=== PATIENT | male | born 1960 | race Caucasian/White ===

== ENCOUNTER 2019-02-10 19:42 | Inpatient (IN) | payer OTHER, BC ==
[~2019-02-10] VITALS: Ht 182.9 cm; Wt 81.6 kg
[2019-02-10] MEDS ORDERED: LIPITOR20 MG (20:05)
[2019-02-10] MEDS ORDERED: BP MEDS (20:05)
[2019-02-10] MEDS ORDERED: NOVOLOG100 UNIT/1 SC (20:05)
[2019-02-10] MEDS ORDERED: LANTUS INSULIN10 ML SC (20:05)
[2019-02-10 20:28] LABS: BASOPHILS 0.2 % (0-2); EOSINOPHILS 0.5 % (0-7); HEMATOCRIT 41.9 % (42.0-54.0); HEMOGLOBIN 14.7 g/dL (13.5-17.5); IMMATURE GRANULOCYTES 0.2 % (0-5); LYMPHOCYTES 22.5 % (15-50); MCH 31.4 pg (26.0-34.0); MCHC 35.1 g/dL (31.0-37.0); MCV 89.5 fL (80.0-100.0); MONOCYTES 8.1 % (2-11); NEUTROPHILS 68.5 % (40-80); PLATELET COUNT 217 10x3/uL (130-400); RBC 4.68 10x6/uL (4.20-6.10); RDW 14.3 % (11.5-14.5)
[2019-02-10 20:41] LABS: ALBUMIN 3.9 g/dL (3.4-5.0); ALKALINE PHOSPHATASE 89 U/L (46-116); ALT (SGPT) 33 U/L (10-68); BILIRUBIN - TOTAL 0.69 mg/dL (0.2-1.3); CALC OSMOLALITY 283 mosm/kg (275-300); CALCIUM 9.4 mg/dL (8.5-10.1); CARBON DIOXIDE 29.1 mmol/L (21.0-32.0); CHLORIDE - SERUM 99 mmol/L (98-107); CREATININE - SERUM 1.8 mg/dL (0.6-1.3); GLUCOSE 130 mg/dL (74-106); POTASSIUM - SERUM 3.2 mmol/L (3.5-5.1); PROTEIN - SERUM 7.9 g/dL (6.4-8.2); SODIUM 139 mmol/L (136-145); UREA NITROGEN 24 mg/dL (7-18); eGFR NON AFRICAN AMERICAN 42 mL/min (90-120)
[2019-02-10 20:44] LABS: AMYLASE - SERUM 41 U/L (25-115); LIPASE 68 U/L (73-393); TROPONIN-I < 0.017 ng/mL (0.000-0.060)
--- NOTE | 2019-02-10 21:21 | NUR ---
URINE SPECIMEN TAKEN TO LAB
[2019-02-10 21:44] LABS: APPEARANCE CLEAR (CLEAR); BILIRUBIN NEGATIVE (NEGATIVE); COLOR YELLOW (YELLOW); GLUCOSE 250 mg/dL (NEGATIVE); KETONE NEGATIVE (NEGATIVE); NITRITE NEGATIVE (NEGATIVE); PROTEIN NEGATIVE (NEGATIVE); UROBILINOGEN NORMAL (NORMAL)
[2019-02-10 22:00] VITALS: BP 118/64
[2019-02-10 22:03] LABS: UDS - AMPHET NEGATIVE QUAL (NEGATIVE); UDS - BARB NEGATIVE QUAL (NEGATIVE); UDS - BENZO NEGATIVE QUAL (NEGATIVE); UDS - COCAINE NEGATIVE QUAL (NEGATIVE); UDS - OPIATE NEGATIVE QUAL (NEGATIVE); UDS - PCP NEGATIVE QUAL (NEGATIVE); UDS - THC POSITIVE QUAL (NEGATIVE)
--- NOTE | 2019-02-10 22:30 | NUR ---
PT ACTIVELY VOMITING IN ROOM. EDP NOTIFIED.
--- NOTE | 2019-02-10 23:15 | NUR ---
PT AMBULATED TO RESTROOM WITH A STEADY GAIT.
[2019-02-11] VITALS (15 sets, daily range): BP systolic 104–130; BP diastolic 44–77; Ht 182.9 cm; Wt 81.6 kg
--- NOTE | 2019-02-11 00:30 | NUR ---
PATIENT ADMITTED TO RM 1210. MESSAGE LEFT WITH ATTENDING MD. PATIENT EDUCATED ON AND DEMONSTRTES APPROPRIATE USE OF A CALL LIGHT. THE PATIENT HAS NO QUESTIONS OR CONCERNS AT THIS TIME.
--- NOTE | 2019-02-11 03:04 | NUR ---
THE PATIENT IS AWAKE AND TALKING TO STAFF. HE HAS NO QUESTINS OR CONCERNS AT THIS TIME.
--- NOTE | 2019-02-11 07:55 | NUR ---
ALERT AND ORIENTED X4. SITTING UP IN BED. NOTIFY LIBRADO RODRIGUEZ OF GLUCOSE LAB DRAW 563. HIGH SLIDING SCALE, KETONES, AND UA WITH MICRO ORDERED VIA TELEPHONE. CONTINUE PLAN OF CARE AND SAFETY PRECAUTIONS.
[2019-02-11 07:56] LABS: CALCIUM 8.9 mg/dL (8.5-10.1)
[2019-02-11 07:59] LABS: ANION GAP 38.8 mmol/L (8-16); CARBON DIOXIDE 11.4 mmol/L (21.0-32.0); POTASSIUM - SERUM 4.2 mmol/L (3.5-5.1)
[2019-02-11 08:03] LABS: BASOPHILS 0.1 % (0-2); EOSINOPHILS 0.1 % (0-7); HEMATOCRIT 36.2 % (42.0-54.0); HEMOGLOBIN 11.9 g/dL (13.5-17.5); IMMATURE GRANULOCYTES 0.5 % (0-5); LYMPHOCYTES 3.7 % (15-50); MCH 30.8 pg (26.0-34.0); MCHC 32.9 g/dL (31.0-37.0); MEAN PLATELET VOLUME 11.4 fL (7.4-10.4); MONOCYTES 7.3 % (2-11); NEUTROPHILS 88.3 % (40-80); PLATELET COUNT 208 10x3/uL (130-400); RBC 3.86 10x6/uL (4.20-6.10); RDW 14.8 % (11.5-14.5)
[2019-02-11 08:04] LABS: MCV 93.8 fL (80.0-100.0); WBC 16.4 10x3/uL (4.8-10.8)
--- NOTE | 2019-02-11 09:15 | NUR ---
ARRIVED TO UNIT AT THIS TIME. PT ALERT AND ORIENTED. STATES IS NAUSEAOUS AND LIGHT HEADED. RR 30, HEART RATE 131. DR VALENTINE CALLED AND UPDATED, ORDERED PRN ZOFRAN, ALSO STATED TO FOLLOW DKA PROTOCOL. WILL CONTINUE PLAN OF CARE.
--- NOTE | 2019-02-11 09:15 | NUR ---
REPORT GIVEN TO LEONIDES DELANEY IN ICU. TRANSPORT TO ROOM 2310 VIA WHEELCHAIR. VOMITS UPON ARRIVAL. ASSIST FROM WHEELCHAIR TO BED. ELAINA RESUMES PLAN OF CARE.
--- NOTE | 2019-02-11 10:14 | NUR ---
DR VALENTINE CALLED REGARDING ABG RESULTS. ORDER RECIEVED FOR 500ML NS BOLUS NOW THEN RUN NS AT 150ML/HR AND IF AFTER BOLUS HEART RATE IS NOT UNDER 115 THEN REPEAT 500ML NS BOLUS.
--- NOTE | 2019-02-11 12:29 | NUR ---
SECOND IV PLACED TO RT WRIST, 22G, FLUSHES WELL.
[2019-02-11 13:51] LABS: APPEARANCE CLEAR (CLEAR); COLOR STRAW (YELLOW)
[2019-02-11 13:52] LABS: BILIRUBIN NEGATIVE (NEGATIVE); GLUCOSE 1000 mg/dL (NEGATIVE); KETONE LARGE mg/dL (NEGATIVE); NITRITE NEGATIVE (NEGATIVE); PROTEIN NEGATIVE (NEGATIVE); UROBILINOGEN NORMAL (NORMAL)
--- NOTE | 2019-02-11 14:25 | NUR ---
BLOOD SUGAR IS 173, PER DR MEME VANG NS AND START D5 WITH 2 AMP BICARB AT 100ML/HR.
--- NOTE | 2019-02-11 14:30 | MORECARE ---
CASE MANAGEMENT DISCHARGE SUMMARY PATIENT: SOFIA BURNETT UNIT: [id number] ADM DATE: 02/10/19 AGE: 58 : 64 SEX: M ROOM/BED: D.2310 AUTHOR: TODD,DOC PHYSICIAN: REFERRING PHYSICIAN: AVIVA VALENTINE MD DATE OF SERVICE: 02/11/19 Discharge Plan Patient Name: SOFIA BURNETT Facility: [facility]:[place] : 1960 Planned Disposition: Anticipated Discharge Date: 02/13/19 Discharge Date: Expected LOS: 3 Initial Reviewer: [email or web address] Initial Review Date: 02/11/2019 Generated: 02/11/19 3:30 pm Comments DCP- Discharge Planning Updated by [email or web address]: Linda Guadarrama on 02/11/19 1:[address] Patient Name: SOFIA BURNETT Encounter No: [id number] : 1960 Primary Insurance: [facility] Recreation Therapy Aide: : NUPUR Note: CM met with patient to complete initial dc planning assessment. CM educated patient on the CM role and verbal consent given by patient to complete assessment. Patient lives at home alone but his girlfriend stays with him some. He reports he is independent in his care at home. At discharge patient plans to return home and feels this is a safe discharge. [facility] and stated he has other insurance. Decline to transform form signed and faxed the the [facility] by cm. CM discussed availability of home health, rehab services, and medical equipment. Patient denied known discharge needs at this time. CM will continue to follow and will assist as needed with dc plans/needs. Linda Guadarrama RN, [facility] DCPIA - Discharge Planning Initial Assessment Updated by [email or web address]: Linda Guadarrama on 02/11/19 2:27 pm * Is the patient Alert and Oriented? Yes * How many steps to enter\exit or inside your home? None * PCP Dr. Williamson at the [facility] * Pharmacy [facility] * Preadmission Environment Home Alone * ADLs Independent * Equipment Cane Glucometer * Other Equipment knee braces and blood pressure cuffs. [facility]> * List name and contact numbers for known caregivers / representatives who currently or will assist patient after discharge: Lenora Campbell sig [facility] - [phone] Address verified and corrected in the system [address] [place] [address] * Verbal permission to speak to the caregivers and representatives has been obtained from the patient. Yes * Community resources currently utilized None * Additional services required to return to the preadmission environment? No * Can the patient safely return to the preadmission environment? Yes * Has this patient been hospitalized within the prior 30 days at any hospital? Yes Patient Name: SOFIA BURNETT Page [id number] at 1430 All edits/amendments must be made on the electronic document DICTATION DATE: 02/11/19 143 RADIOCOMMUNICATIONS TECHNICIAN: AMA 02/11/19 1430 RPT#: [id number] DC DATE: STATUS: ADM IN [facility] [address] [place] [address] END OF REPORT
[2019-02-11 16:37] LABS: ALBUMIN 3.1 g/dL (3.4-5.0); ANION GAP 13.8 mmol/L (8-16); BILIRUBIN - TOTAL 0.64 mg/dL (0.2-1.3); CALCIUM 8.1 mg/dL (8.5-10.1); CARBON DIOXIDE 26.5 mmol/L (21.0-32.0); CREATININE - SERUM 1.7 mg/dL (0.6-1.3); POTASSIUM - SERUM 3.3 mmol/L (3.5-5.1); PROTEIN - SERUM 6.1 g/dL (6.4-8.2)
--- NOTE | 2019-02-11 17:40 | NUR ---
NOTED BLOOD SUGAR IS 123, ANION GAP IS 13, UPDATES CALLED TO DR VALENTINE, HE STATED TO CONTINUE INSULIN GTT UNTIL MORNING, START PT ON DIABETIC DIET MEAL TRAY. WILL CONTINUE PLAN OF CARE.
--- NOTE | 2019-02-11 17:57 | NUR ---
DR VALENTINE NOTIFIED THAT PTS HEART RATE IS STILL HOLDING IN THE 120S-130S, NO NEW ORDERS RECIEVED.
--- NOTE | 2019-02-11 19:00 | NUR ---
REPORT RECEIVED. RECEIVED PATIENT IN BED. AWAKE AND ALERT. ORIENTED X 4. SPEECH CLEAR. VISTING WITH AT BEDSIDE. VSS. NO ACUTE DISTRESS OBSERVED. MONITORS CONNECTED TO PATIENT WITH ALARMS SET. CALL LIGHT IN REACH AND ABLE TO UTILIZE TO MAKE NEEDS KNOWN.
--- NOTE | 2019-02-11 21:00 | NUR ---
VSS. NO ACUTE DISTRESS OBSERVED. CALL LIGHT IN REACH
--- NOTE | 2019-02-11 23:00 | NUR ---
REASSESSMENT COMPLETED PER FLOW SHEET WITH NO CHANGES OR ACUTE DISTRESS OBSERVED. VSS
[2019-02-12] VITALS (22 sets, daily range): BP systolic 102–152; BP diastolic 64–94
--- NOTE | 2019-02-12 01:00 | NUR ---
VSS. NO ACUTE DISTRESS OBSERVED.
--- NOTE | 2019-02-12 03:00 | NUR ---
REASSESSMENT COMPLETED PER FLOW SHEET WITH NO CHANGES OR ACUTE DISTRESS OBSERVED. VSS. CALL LIGHT IN REACH
[2019-02-12 03:59] LABS: BASOPHILS 0.1 % (0-2); EOSINOPHILS 0.1 % (0-7); HEMATOCRIT 34.1 % (42.0-54.0); HEMOGLOBIN 11.9 g/dL (13.5-17.5); IMMATURE GRANULOCYTES 0.4 % (0-5); MCH 31.2 pg (26.0-34.0); MCHC 34.9 g/dL (31.0-37.0); MEAN PLATELET VOLUME 10.6 fL (7.4-10.4); NEUTROPHILS 77.4 % (40-80); PLATELET COUNT 186 10x3/uL (130-400); RBC 3.81 10x6/uL (4.20-6.10); RDW 14.7 % (11.5-14.5); WBC 15.9 10x3/uL (4.8-10.8)
[2019-02-12 04:01] LABS: MCV 89.5 fL (80.0-100.0)
[2019-02-12 04:04] LABS: CALCIUM 8.2 mg/dL (8.5-10.1); CARBON DIOXIDE 29.4 mmol/L (21.0-32.0); CREATININE - SERUM 1.3 mg/dL (0.6-1.3); POTASSIUM - SERUM 3.4 mmol/L (3.5-5.1)
--- NOTE | 2019-02-12 05:08 | NUR ---
VSS. NO ACUTE DISTRESS OBSERVED. CALL LIGHT IN REACH
--- NOTE | 2019-02-12 07:00 | NUR ---
RECEIVED BEDSIDE REPORT ON PATIENT AND ASSUMED CARE. PATIENT AWAKE AND ALERT X 4, VSS, SITTING UP IN BED WATCHING TV. PATIENT W/O C/O NAUSEA OR VOMITING. IVS INFUSING W/O DIFFICULTY. INSULIN GTT AT 2 CC/HR TO RIGHT AC 20 GAUGE AND BICARB GTT (100MEQ) AT 100 CC/HR TO RIGHT WRIST 22 GAUGE IV. HEAD TO TOE ASSESSMENT COMPLETED.
--- NOTE | 2019-02-12 07:40 | NUR ---
SPOKE TO SEJAL POSADAS APN REGARDING PATIENTS INSULIN GTT AND LAB RESULTS. ADVISED TO D/C INSULIN GTT AND START ON INTERMEDIATE SLIDING SCALE.
--- NOTE | 2019-02-12 08:00 | NUR ---
PATIENT INSULIN GTT STOPPED PER ORDER. ATE 100% OF HIS BREAKFAST. VSS.
--- NOTE | 2019-02-12 10:36 | NUR ---
PATIENT C\O SORE THROAT, SPOKE TO DR. STOVALL ORDERED CHLOROSEPTIC SPRAY.
--- NOTE | 2019-02-12 11:22 | NUR ---
REASSESSMENT COMPLETE. VSS. FSBS - 358, GIVEN 16 UNITS INSULIN SC PER SLIDING SCALE. DR. STOVALL AT ROOM UPDATED AND EXAMINES PATIENT, ANSWERS QUESTIONS.
--- NOTE | 2019-02-12 13:16 | NUR ---
PATIENT STATES NAUSEA BETTER, WATCHING TV. VSS.
--- NOTE | 2019-02-12 15:02 | NUR ---
PATIENT RESTING QUIETLY, VSS. EASILY AROUSED BY VOICE. REASSESSMENT COMPLETED.
--- NOTE | 2019-02-12 16:49 | NUR ---
PATIENT PROVIED DINNER TRAY. VSS.
--- NOTE | 2019-02-12 19:00 | NUR ---
REPORT RECEIVED. RECEIVED PATIENT SITTING UP IN BED. AWAKE AND ALERT. ORIENTED X 4. SPEECH CLEAR. MONITORS CONNECTED TO PATIENT WITH ALARMS SET. VSS. CALL LIGHT IN REACH AND ABLE TO UTILIZE TO MAKE NEEDS KNOWN. SHIFT ASSESSMENT COMPLETED PER FLOW SHEET WITH NO ACUTE DISTRESS OBSERVED.
--- NOTE | 2019-02-12 21:00 | NUR ---
VSS. NO DISTRESS OBSERVED. CALL LIGHT IN REACH.
--- NOTE | 2019-02-12 23:00 | NUR ---
REASSESSMENT COMPLETED PER FLOW SHEET WITH NO CHANGES OR ACUTE DISTRESS OBSERVED. CALL LIGHT IN REACH
[2019-02-13] VITALS (11 sets, daily range): BP systolic 132–156; BP diastolic 82–97
--- NOTE | 2019-02-13 01:00 | NUR ---
RESTING WITH EYES CLOSED. EASILY ROUSED AND ALERT. VSS. CALL LIGHT IN REACH.
--- NOTE | 2019-02-13 03:00 | NUR ---
REASSESMENT COMPLETED PER FLOW SHEET WITH NO CHANGES OR ACUTE DISTRESS OBSERVED. VSS. CALL LIGHT IN REACH.
--- NOTE | 2019-02-13 05:00 | NUR ---
RESTING WITH EYES CLOSED. VSS. CALL LIGHT IN REACH. NO ACUTE DISTRESS OBSERVED.
[2019-02-13 05:18] LABS: BASOPHILS 0.1 % (0-2); EOSINOPHILS 0.1 % (0-7); HEMATOCRIT 34.5 % (42.0-54.0); HEMOGLOBIN 11.7 g/dL (13.5-17.5); IMMATURE GRANULOCYTES 0.1 % (0-5); LYMPHOCYTES 28.1 % (15-50); MCH 30.5 pg (26.0-34.0); MCHC 33.9 g/dL (31.0-37.0); MCV 89.8 fL (80.0-100.0); MEAN PLATELET VOLUME 10.3 fL (7.4-10.4); MONOCYTES 9.1 % (2-11); NEUTROPHILS 62.5 % (40-80); PLATELET COUNT 167 10x3/uL (130-400); RBC 3.84 10x6/uL (4.20-6.10); RDW 14.3 % (11.5-14.5)
[2019-02-13 05:35] LABS: CALCIUM 8.8 mg/dL (8.5-10.1); CARBON DIOXIDE 34.7 mmol/L (21.0-32.0); CHLORIDE - SERUM 101 mmol/L (98-107); SODIUM 139 mmol/L (136-145); eGFR NON AFRICAN AMERICAN 82 mL/min (90-120)
[2019-02-13 05:37] LABS: CALC OSMOLALITY 286 mosm/kg (275-300); GLUCOSE 232 mg/dL (74-106); POTASSIUM - SERUM 3.4 mmol/L (3.5-5.1); UREA NITROGEN 17 mg/dL (7-18)
[2019-02-13 05:41] LABS: WBC 7.8 10x3/uL (4.8-10.8)
--- NOTE | 2019-02-13 08:01 | NUR ---
UP IN BED EATING BREAKFAST AT THIS TIME. NO ACUTE DISTRESS NOTED. PT DENIES ANY NEEDS. VSS. WILL CONTINUE PLAN OF CARE.
--- NOTE | 2019-02-13 10:01 | NUR ---
UP IN BED WATCHING TV. AT BEDSIDE. NO ACUTE DISTRESS NOTED. WILL CONTINUE PLAN OF CARE.
--- NOTE | 2019-02-13 11:55 | NUR ---
PER DR STOVALL, OKAY TO TRANSFER PT TO FLOOR.
--- NOTE | 2019-02-13 13:05 | NUR ---
UP IN BED WATCHING TV AT THIS TIME. NO ACUTE DISTRESS NOTED. PT DENIES ANY NEEDS. WILL CONTINUE PLAN OF CARE.
--- NOTE | 2019-02-13 15:04 | NUR ---
PT STATES HE TAKES BACLOFEN AT HOME FOR SPASMS AND REQUESTS TO HAVE NOW. PHYSICIAN CALLED, ORDER RECIEVED TO RESTART BACLOFEN AT 10MG Q4H PRN SPASMS. NO ACUTE DISTRESS NOTED. WILL CONTINUE PLAN OF CARE.
--- NOTE | 2019-02-13 17:09 | NUR ---
UP IN BED EATING SUPPER AT THIS TIME. DENIES ANY NEEDS. CALL LIGHT IN REACH. WILL CONTINUE PLAN OF CARE.
--- NOTE | 2019-02-13 19:00 | NUR ---
REPORT RECEIVED. RECEIVED PT IN BED AWAKE AND ALERT. ORIENTED X 4. SPEECH CLEAR. HAS NON PRODUCTIVE DRY HACKING COUGH OCCASSIONALLLY. LUNG SOUNDS CTA. DENIES SOB/DYSPNEA. MONITORS CONNECTED TO PATIENT WITH ALARMS SET. VSS. CALL LIGHT IN REACH AND ABLE TO UTILIZE TO MAKE NEEDS KNOWN.
--- NOTE | 2019-02-13 21:00 | NUR ---
MEDS TAKEN WITHOUT DIFF. VSS. NO DISTRESS OBSERVED.
--- NOTE | 2019-02-13 22:55 | NUR ---
ANSWERED PATIENTS CALL LIGHT. PT REPORTS FEELING ANXIOUS AND WANTTING TO LEAVE HOSP. PT ENCOURAGED TO STAY. EDUCATED ON RISK OF LEAVING HOSP AMA. PT STATED HE WOULD STAY AFTER PRN MED OFFERED. ORTHOPHOTOGRAPHY TECHNICIAN DR. WILMAN BLACK PAGED.
--- NOTE | 2019-02-13 23:15 | NUR ---
INTO PATIENT ROOM. PATIENT FOUND SITTING UP ON SIDE OF BED FULLY DRESSED WITH BELONGINGS PACKED. STATED HE WAS LEAVING. IV TO RT AC REMOVED WITH CATH INTACT, PRESSURE HELD AND BANDAGE APPLIED. AMA FORM SIGNED BY PATIENT.
--- NOTE | 2019-02-13 23:20 | NUR ---
PATIENT AMBULATED OUT OF UNIT WITH BELONGINGS IN HIS POCESSION.
--- NOTE | 2019-02-13 23:40 | NUR ---
RETURN CALL FROM DR. STOVALL RECEIVED INFORMED OF PATIENT LEAVING HOSP A.
--- NOTE | 2019-02-13 23:56 | NUR ---
CHARGE NURSE SERENA COYLE INTO ROOM ACCOMPANIED BY LUÍS COYLE. ENCOURAGED PATIENT TO STAY AT FACILITY AND EDUCATED PATIENT ON RISKS OF LEAVING AT THIS TIME. PATIENT VOICED UNDERSTANDING.
--- NOTE | 2019-02-14 15:44 | MORECARE ---
CASE MANAGEMENT DISCHARGE SUMMARY PATIENT: SOFIA BURNETT UNIT: [id number] ADM DATE: 02/11/19 AGE: 58 : 64 SEX: M ROOM/BED: D.2310 AUTHOR: TODD,DOC PHYSICIAN: REFERRING PHYSICIAN: AVIVA VALENTINE MD DATE OF SERVICE: 02/14/19 Discharge Plan Patient Name: SOFIA BURNETT Facility: [facility]:[place] : 1960 Planned Disposition: Anticipated Discharge Date: 02/13/19 Discharge Date: 02/13/2019 Expected LOS: 3 Initial Reviewer: [email or web address] Initial Review Date: 02/11/2019 Generated: 02/14/19 4:44 pm DCP- Discharge Planning Updated by [email or web address]: Linda Guadarrama on 02/11/19 1:[address] Patient Name: SOFIA BURNETT Encounter No: [id number] : 1960 Primary Insurance: [employer] Aircraft Skin Burnisher: : NUPUR Note: CM met with patient to complete initial dc planning assessment. CM educated patient on the CM role and verbal consent given by patient to complete assessment. Patient lives at home alone but his girlfriend stays with him some. He reports he is independent in his care at home. At discharge patient plans to return home and feels this is a safe discharge. [facility] and stated he has other insurance. Decline to transform form signed and faxed the the [facility] by cm. CM discussed availability of home health, rehab services, and medical equipment. Patient denied known discharge needs at this time. CM will continue to follow and will assist as needed with dc plans/needs. Linda Guadarrama RN, [facility] DCPIA - Discharge Planning Initial Assessment Updated by [id number]: Linda Guadarrama on 02/11/19 2:27 pm * Is the patient Alert and Oriented? Yes * How many steps to enter\exit or inside your home? None * PCP Dr. Williamson at the [facility] * Pharmacy [facility] * Preadmission Environment Home Alone * ADLs Independent * Equipment Cane Glucometer * Other Equipment knee braces and blood pressure cuffs. [facility]> * List name and contact numbers for known caregivers / representatives who currently or will assist patient after discharge: Lenora hargrove other - [phone] Address verified and corrected in the system [address] [place] [address] * Verbal permission to speak to the caregivers and representatives has been obtained from the patient. Yes * Community resources currently utilized None * Additional services required to return to the preadmission environment? No * Can the patient safely return to the preadmission environment? Yes * Has this patient been hospitalized within the prior 30 days at any hospital? Yes Last DP export: 02/11/19 1:30 p Patient Name: SOFIA BURNETT Page [id number] at 1544 All edits/amendments must be made on the electronic document DICTATION DATE: 02/14/191543 SPRING COVERER: AMA 02/14/191543 RPT#: [id number] DC DATE:02/13/19 STATUS: DIS IN [facility] [address] [place] [address] END OF REPORT
== END 2019-02-13 23:20 | disposition left against medical advice (07) | DRG 638 ==
LOC: D.ER 19:42 → D.M3 23:25 → OBSVTIME 23:25 → D.ICU 23:25 → D.M3 23:25 → D.ICU 02-11 09:24
PROVIDERS: Family Medicine; ADMIT Internal Medicine Nephrology; ATTEND Internal Medicine Nephrology
DX: E11.10 Type 2 diabetes mellitus with ketoacidosis without coma (principal); F17.203 Nicotine dependence unspecified, with withdrawal; N17.9 Acute kidney failure, unspecified; Z79.4 Long term (current) use of insulin; I10 Essential (primary) hypertension; D64.9 Anemia, unspecified; G89.29 Other chronic pain; E86.9 Volume depletion, unspecified

== ENCOUNTER 2019-03-05 17:58 | Emergency (ER) | payer OTHER ==
[~2019-03-05] VITALS: Ht 182.9 cm; Wt 84.1 kg
[~2019-03-05 17:58] MED LIST: BP MEDS; LANTUS INSULIN10 ML SC; LIPITOR20 MG; NOVOLOG100 UNIT/1 SC
[2019-03-05 18:08] VITALS: Ht 182.9 cm; Wt 84.1 kg
[2019-03-05] MEDS ORDERED: LISINOPRIL40 MG PO (18:09)
[2019-03-05] MEDS ORDERED: PROZAC40 MG PO (18:12)
[2019-03-05] MEDS ORDERED: HYDROCODON-ACE1 EAC7 PO (20:45)
[2019-03-05 21:00] VITALS: BP 132/82
== END 2019-03-05 21:00 | disposition home or self-care (01) ==
LOC: D.ER 17:58
DX: S82.61XA Displaced fracture of lateral malleolus of right fibula, initial encounter for closed fracture (principal); X50.1XXA Overexertion from prolonged static or awkward postures, initial encounter; Y93.89 Activity, other specified; Y92.89 Other specified places as the place of occurrence of the external cause; S92.351A Displaced fracture of fifth metatarsal bone, right foot, initial encounter for closed fracture

== ENCOUNTER 2019-05-06 20:09 | Inpatient (IN) | payer OTHER ==
[~2019-05-06] VITALS: Ht 182.9 cm; Wt 85.5 kg
[~2019-05-06 20:09] MED LIST changes: +HYDROCODON-ACE1 EAC7 PO; +LISINOPRIL40 MG PO; +PROZAC40 MG PO
[2019-05-06 22:01] LABS: BASOPHILS 0.3 % (0-2); EOSINOPHILS 0.3 % (0-7); HEMATOCRIT 41.7 % (42.0-54.0); HEMOGLOBIN 14.8 g/dL (13.5-17.5); IMMATURE GRANULOCYTES 0.3 % (0-5); LYMPHOCYTES 22.5 % (15-50); MCH 32.7 pg (26.0-34.0); MCHC 35.5 g/dL (31.0-37.0); MCV 92.3 fL (80.0-100.0); MEAN PLATELET VOLUME 10.1 fL (7.4-10.4); MONOCYTES 7.2 % (2-11); NEUTROPHILS 69.4 % (40-80); PLATELET COUNT 221 10x3/uL (130-400); RBC 4.52 10x6/uL (4.20-6.10); RDW 14.2 % (11.5-14.5)
[2019-05-06 22:08] VITALS: BP 154/89
[2019-05-06 22:13] LABS: KETONE - SERUM SMALL mg/dL (NEGATIVE)
[2019-05-06 22:15] LABS: APPEARANCE CLEAR (CLEAR); BILIRUBIN NEGATIVE (NEGATIVE); COLOR YELLOW (YELLOW); GLUCOSE 1000 mg/dL (NEGATIVE); KETONE LARGE mg/dL (NEGATIVE); NITRITE NEGATIVE (NEGATIVE); PROTEIN TRACE mg/dL (NEGATIVE); SPECIFIC GRAVITY 1.025 (1.005-1.020); UROBILINOGEN NORMAL (NORMAL)
[2019-05-06 22:17] LABS: RED CELLS - URINE 0-5 /hpf (0-5); WHITE CELLS - URINE 0-5 /hpf (0-5)
[2019-05-06 22:18] LABS: BACTERIA MODERATE /hpf (NONE SEEN); MUCUS <1+ /lpf (NONE SEEN)
[2019-05-06 22:19] LABS: ALBUMIN 4.1 g/dL (3.4-5.0); ALKALINE PHOSPHATASE 104 U/L (46-116); ALT (SGPT) 38 U/L (10-68); BILIRUBIN - TOTAL 0.52 mg/dL (0.2-1.3); CALC OSMOLALITY 283 mosm/kg (275-300); CALCIUM 9.3 mg/dL (8.5-10.1); CARBON DIOXIDE 26.9 mmol/L (21.0-32.0); CHLORIDE - SERUM 96 mmol/L (98-107); CREATININE - SERUM 1.2 mg/dL (0.6-1.3); GLUCOSE 215 mg/dL (74-106); MAGNESIUM - SERUM 1.8 mg/dL (1.8-2.4); POTASSIUM - SERUM 3.9 mmol/L (3.5-5.1); PROTEIN - SERUM 8.2 g/dL (6.4-8.2); SODIUM 137 mmol/L (136-145); UREA NITROGEN 23 mg/dL (7-18); eGFR NON AFRICAN AMERICAN 66 mL/min (90-120)
[2019-05-06 22:29] LABS: TROPONIN-I < 0.017 ng/mL (0.000-0.060)
--- NOTE | 2019-05-06 23:00 | NUR ---
PT ARRIVED TO FLOOR VIA WHEELCHAIR, ALERT AND ORIENTED, WITHOUT DISTRESS. PT ON AND OFF VOMITING YELLOW BILE, HAVING YELLOW DIARRHEA AT THIS TIME. STATES PAIN IN ABD 6/10. STATES THESE SYMPTOMS STARTEDT THIS AM. IV RIGHT FA INFUSING 2 OF 2 NS BOLUS. VSS. PT UP AD JACINTO WITHOUT DIFFICULTY. DENIES OTHER NEEDS. CL IN REACH, WILL CTM
[2019-05-06 23:15] VITALS: BP 125/89; BMI 24.4
[2019-05-07] VITALS (17 sets, daily range): BP systolic 94–173; BP diastolic 44–80; Ht 182.9 cm; Wt 85.5 kg
--- NOTE | 2019-05-07 04:30 | NUR ---
CALLED TO PT ROOM, PT CONTINUES TO VOMIT WITH ZOFRAN. PT STATES HE IS NOW VOMITING BLOOD. REQUESTED PT TO USE EMESIS BAG SO THIS NURSE COULD SEE SAMPLE. PLACED HAT IN BATHROOM TO GET STOOL SAMPLE. PT WENT TO BATHROOM. YELLOW WATERY STOOL WITH THREE BLACK TAR LIKE CLOTS. PT EMESIS RED WITH VERY SMALL CLOTS THROUGHOUT. PAGED SEJAL POSADAS X2 WITHOUT RETURNED PAGE. RECIEVED LACTIC ACID RESULTS OF 6.9. CALLED DR VALENTINE TO UPDATE ON PT STATUS AND RESULTS. DR VALENTINE ORDERED PT TO BE NPO, TRANSFERED TO ICU, PROTONIX DRIP, ATIVAN 1MG Q4PRN FOR N/V, LABS WITH COAG STUDIES. ORDERS REPEATED BACK. CALLED SPOT CHECKER FOR ICU BED, 2309. STARTED PROTONIX DRIP, CHECKED FSBS 451, GAVE 12 UNITS INSULIN. CALLED ICU TO GIVE REPORT 0610, TOLD WILL CALL BACK. WILL CTM
[2019-05-07] MEDS ORDERED: BASAGLAR K100 UNIT/1 SC (05:03)
[2019-05-07 05:57] LABS: BASOPHILS 0.1 % (0-2); EOSINOPHILS 0 % (0-7); HEMOGLOBIN 13.4 g/dL (13.5-17.5); IMMATURE GRANULOCYTES 0.8 % (0-5); LYMPHOCYTES 6.6 % (15-50); MCH 32.2 pg (26.0-34.0); MCHC 33.5 g/dL (31.0-37.0); MEAN PLATELET VOLUME 11.5 fL (7.4-10.4); MONOCYTES 5.3 % (2-11); NEUTROPHILS 87.2 % (40-80); PLATELET COUNT 236 10x3/uL (130-400); RBC 4.16 10x6/uL (4.20-6.10); RDW 14.6 % (11.5-14.5)
[2019-05-07 05:59] LABS: MCV 96.2 fL (80.0-100.0); WBC 14.4 10x3/uL (4.8-10.8)
[2019-05-07 06:00] LABS: APTT 26.1 SECONDS (22.8-39.4); INR 1.03 (0.85-1.17)
[2019-05-07 06:03] LABS: ALBUMIN 4.2 g/dL (3.4-5.0); ANION GAP 36.2 mmol/L (8-16); BILIRUBIN - TOTAL 0.76 mg/dL (0.2-1.3); CALCIUM 9.3 mg/dL (8.5-10.1); CREATININE - SERUM 1.5 mg/dL (0.6-1.3); POTASSIUM - SERUM 4.4 mmol/L (3.5-5.1); PROTEIN - SERUM 7.8 g/dL (6.4-8.2)
[2019-05-07 06:04] LABS: CARBON DIOXIDE 11.2 mmol/L (21.0-32.0)
--- NOTE | 2019-05-07 07:00 | NUR ---
PT TRANSFERED TO ICU VIA WHEELCHAIR WITHOUT DIFFICULTY. AMBULATED TO BED, IV RIGHT FA INFUSING NS @ 125 WITH PROTONIX DRIP
--- NOTE | 2019-05-07 07:11 | NUR ---
PATIENT ARRIVIED TO UNIT BY WHEELCHAIR, ALL ICU MONITORING INITIATED. HR 132. RR 24. O2 98% ON ROOM AIR. ORAL TEMPERATURE 98.9. BP 137/71. PATIENT DENIES NEEDS AT THIS TIME. CALL LIGHT WITHIN REACH.
--- NOTE | 2019-05-07 07:16 | NUR ---
RECEIVED REPORT FROM NIGHT NURSE. PT RESTING IN BED AWAKE ALRT AND ORIENTED. SINUS TACHY. OTHER VITALS ARE STABLE. WILL CHECK ORDERS AND CONTINUE TO MONITOR
--- NOTE | 2019-05-07 08:04 | NUR ---
CALLED DR. PENA TO EXPLAIN PROBABLE DKA STATUS AND OBTAIN ORDERS. DID NOT ANSWER. WILL TRY AGAIN IN 1 HOUR
--- NOTE | 2019-05-07 08:42 | NUR ---
CURRENT BLOOD SUGAR 420. DR. JEAN SAMPSON RETURNED CALL. WILL PAGE
--- NOTE | 2019-05-07 09:34 | NUR ---
CALLED DR. PENA AGAIN. NO ANSWER.
[2019-05-07 12:33] LABS: BASOPHILS 0.1 % (0-2); EOSINOPHILS 0 % (0-7); HEMATOCRIT 34.9 % (42.0-54.0); HEMOGLOBIN 11.8 g/dL (13.5-17.5); IMMATURE GRANULOCYTES 0.6 % (0-5); LYMPHOCYTES 6.2 % (15-50); MCH 32.1 pg (26.0-34.0); MCHC 33.8 g/dL (31.0-37.0); MCV 94.8 fL (80.0-100.0); MEAN PLATELET VOLUME 10.5 fL (7.4-10.4); MONOCYTES 7.9 % (2-11); NEUTROPHILS 85.2 % (40-80); PLATELET COUNT 197 10x3/uL (130-400); RBC 3.68 10x6/uL (4.20-6.10); RDW 14.6 % (11.5-14.5); WBC 15.4 10x3/uL (4.8-10.8)
--- NOTE | 2019-05-07 12:53 | NUR ---
PATIENT RESTING IN BED C VSS. WILL CONTINUE TO MONITOR
[2019-05-07 12:57] LABS: CALC OSMOLALITY 273 mosm/kg (275-300); CARBON DIOXIDE 10.3 mmol/L (21.0-32.0); CHLORIDE - SERUM 94 mmol/L (98-107); CREATININE - SERUM 1.5 mg/dL (0.6-1.3); GLUCOSE 296 mg/dL (74-106); POTASSIUM - SERUM 4.9 mmol/L (3.5-5.1); SODIUM 129 mmol/L (136-145); UREA NITROGEN 25 mg/dL (7-18); eGFR NON AFRICAN AMERICAN 51 mL/min (90-120)
[2019-05-07 13:35] LABS: KETONE - SERUM LARGE mg/dL (NEGATIVE)
--- NOTE | 2019-05-07 13:59 | NUR ---
OBTAINED ORDER FROM DR. PENA FOR INSULIN DRIP AND FOLLOW DKA PROTOCOL
--- NOTE | 2019-05-07 15:02 | NUR ---
INITIATED INSULIN DRIP AT THIS TIME AT 5.3UNITS/HR ACCORDING TO PROTOCOL.
--- NOTE | 2019-05-07 17:00 | NUR ---
PATIENT VSS. REPLACED NS WITH D5NS SINCE ON INSULIN DRIP AND BG IS WITHIN NORMAL RANGE NOW. WILL CONTINUE TO MONITOR
--- NOTE | 2019-05-07 18:20 | MORECARE ---
CASE MANAGEMENT DISCHARGE SUMMARY PATIENT: SOFIA BURNETT UNIT: [id number] ADM DATE: 05/06/19 AGE: 58 : 64 SEX: M ROOM/BED: D.2309 AUTHOR: TODD,DOC PHYSICIAN: REFERRING PHYSICIAN: AVIVA VALENTINE MD DATE OF SERVICE: 05/07/19 Discharge Plan Patient Name: SOFIA BURNETT Facility: [facility]:[place] : 1960 Planned Disposition: Home Anticipated Discharge Date: Discharge Date: Expected LOS: Initial Reviewer: [email or web address] Initial Review Date: 05/07/2019 Generated: 05/07/19 7:20 pm Comments DCP- Discharge Planning Updated by [email or web address]: Veronika Disla on 05/07/19 5:[address] Patient Name: SOFIA BURNETT Admission Status: ER Accout number: [id number] Admission Date: 05-06-2019 : 1960 Admission Diagnosis: Attending: AVIVA VALENTINE Current LOS: 1 Anticipated DC Date: Planned Disposition: Home Primary Insurance: [employer] Discharge Planning Comments: CM met with patient and spouse (Lenora) at bedside after explaining CM role and obtaining verbal consent. Patient lives at home with his Lenora and plans to return there upon discharge. Patient feels this would be a safe discharge. CM discussed availability / needs of home health and medical equipment. Patient denies any discharge needs at this time. Patient states he will have his drive him home upon discharge. CM will continue to follow and assist as needed with discharge planning / needs. Rn First Assist: Veronika Disla DCP- Discharge Planning Updated by [email or web address]: Veronika Disla on 05/07/19 5:[address] CM CONTACTED [facility] AND INFORMED THEM OF PATIENTS ADMISSION. PATIENT PLACED ON LIST TO TRANSFER. DCPIA - Discharge Planning Initial Assessment Updated by [email or web address]: Veronika Disla on 05/07/19 6:13 pm * Is the patient Alert and Oriented? Yes * How many steps to enter\exit or inside your home? * [facility] * [facility] - LOCAL [facility] OFFICE * Preadmission Environment Home with Family * ADLs Independent * Other Equipment GLUCOMETER, B/P CUFF * List name and contact numbers for known caregivers / representatives who currently or will assist patient after discharge: LENORA BARAHONA - [facility] - [phone] * Verbal permission to speak to the caregivers and representatives has been obtained from the patient. Yes * Community resources currently utilized None * Additional services required to return to the preadmission environment? No * Can the patient safely return to the preadmission environment? Yes * Has this patient been hospitalized within the prior 30 days at any hospital? No Patient Name: SOFIA BURNETT Page 12801 at 1820 All edits/amendments must be made on the electronic document DICTATION DATE: 05/07/191819 CAPABILITY LEAD: AMA 05/07/191819 RPT#: [id number] DC DATE: STATUS: ADM IN [facility] [address] [place] [address] END OF REPORT
--- NOTE | 2019-05-07 19:02 | NUR ---
REPORT RECEIVED, SHIFT ASSESSMENT COMPLETED PER FLOW SHEET. AAOX4. PPP. RT FOREARM PIV PATENT, NO SIGNS OF INFECTION OR INFILTRATION. SEE FLOW SHEET FOR COMPLETE ASSESSMENT. CALL LIGHT WITHIN REACH. WILL CONTINUE TO MONITOR.
--- NOTE | 2019-05-07 21:00 | NUR ---
DENIES NEEDS AT THIS TIME. NO ACUTE DISTRESS NOTED.
--- NOTE | 2019-05-07 22:37 | NUR ---
C/O PAIN, PRN NORCO GIVEN. DENIES OTHER NEEDS. CALL LIGHT WITHIN REACH.
--- NOTE | 2019-05-07 23:14 | NUR ---
REASSESSMENT COMPLETED PER FLOW SHEET, SEE FOR DETAILS. NO ACUTE DISTRESS NOTED. DENIES NEEDS. CALL LIGHT WITHIN REACH. WILL CONTINUE TO MONITOR.
[2019-05-08] VITALS (15 sets, daily range): BP systolic 94–158; BP diastolic 64–99
--- NOTE | 2019-05-08 01:42 | NUR ---
CALL LIGHT ANSWERED, C/O NAUSEA. PRN ZOFRAN GIVEN, EMESIS BAG PROVIDED, NO VOMITING AT THIS TIME. DENIES OTHER NEEDS. CALL LIGHT WITHIN REACH.
--- NOTE | 2019-05-08 03:03 | NUR ---
REASSESSMENT COMPLETED PER FLOW SHEET, SEE FOR DETAILS. NO ACUTE CHANGES NOTED. DENIES NEEDS. CALL LIGHT WITHIN REACH. WILL CONTINUE TO MONITOR.
[2019-05-08 03:45] LABS: BASOPHILS 0 % (0-2); EOSINOPHILS 0.1 % (0-7); HEMATOCRIT 34.1 % (42.0-54.0); IMMATURE GRANULOCYTES 0.3 % (0-5); LYMPHOCYTES 10.6 % (15-50); MCH 32.4 pg (26.0-34.0); MCHC 35.2 g/dL (31.0-37.0); MONOCYTES 11.9 % (2-11); NEUTROPHILS 77.1 % (40-80); PLATELET COUNT 192 10x3/uL (130-400); RDW 14.4 % (11.5-14.5); WBC 14.6 10x3/uL (4.8-10.8)
[2019-05-08 03:52] LABS: MCV 92.2 fL (80.0-100.0)
[2019-05-08 03:59] LABS: CREATININE - SERUM 1.3 mg/dL (0.6-1.3)
[2019-05-08 04:23] LABS: ANION GAP 11.8 mmol/L (8-16); CARBON DIOXIDE 24.5 mmol/L (21.0-32.0); POTASSIUM - SERUM 3.3 mmol/L (3.5-5.1)
--- NOTE | 2019-05-08 05:00 | NUR ---
COMPLETE BED BATH GIVEN WITH MINIMAL ASSISSTANCE. COMPLETE BED LINEN CHANGE PROVIDED. DENIES NEEDS. CALL LIGHT WITHIN REACH.
--- NOTE | 2019-05-08 06:48 | NUR ---
CALLED AND SPOKE TO JACQUIE LANZA APN. UPDATE GIVEN ON PATIENT'S CURRENT STATUS. NEW ORDERS RECEIVED, SEE ORDERS FOR DETAILS.
--- NOTE | 2019-05-08 07:15 | NUR ---
julio c/o pain. warm blanket provided. call light within reach. vss. will continue to monitor.
--- NOTE | 2019-05-08 08:19 | NUR ---
report recieved. shift assessment completed. vss. will continue to monitor.
--- NOTE | 2019-05-08 11:11 | NUR ---
PATIENT RESTING. NO C/O OF NAUSEA AT THIS TIME. VSS. CALL LIGHT WITHIN REACH. WILL CONTINUE TO MONITOR
[2019-05-08 12:36] LABS: CALCIUM 8.4 mg/dL (8.5-10.1); CARBON DIOXIDE 19.9 mmol/L (21.0-32.0); CHLORIDE - SERUM 102 mmol/L (98-107); POTASSIUM - SERUM 3.7 mmol/L (3.5-5.1); SODIUM 135 mmol/L (136-145); eGFR NON AFRICAN AMERICAN 82 mL/min (90-120)
[2019-05-08 12:37] LABS: CALC OSMOLALITY 274 mosm/kg (275-300); GLUCOSE 209 mg/dL (74-106); UREA NITROGEN 10 mg/dL (7-18)
--- NOTE | 2019-05-08 13:00 | NUR ---
patient refused bath at this time
--- NOTE | 2019-05-08 14:46 | NUR ---
report given to pj spears
--- NOTE | 2019-05-08 15:34 | NUR ---
PT RECIEVED VIA WHEELCHAIR. VSS AT THIS TIME. IV R. FOREARM INFUSING PROTONIX @ 10ML/HR AND D5 NS KCL 40 MEQ @ 125ML/HR. PT IS ALERT AND ORIENTED. UP AD JACINTO. DENIES PAIN OR NEEDS AT THIS TIME. WILL CONTINUE TO MONITOR.
--- NOTE | 2019-05-08 18:56 | NUR ---
REPORT REC'D. PT SEMI FOWLERS IN BED. PT COMPLAINING ABOUT STOMACH HURTING. WILL CTM. BREATHING EVEN AND UNLABORED. PIV RT FOREARM PATENT AND INTACT WITH D5 W/ POT @ 125. PT DENIES ANY NEEDS AT THIS TIME. CALL LIGHT WITHIN REACH. BED IN LOWEST POSITION. WILL CONT WITH POC.
[2019-05-09] VITALS: BP 146/89
[2019-05-09 06:07] LABS: BASOPHILS 0 % (0-2); EOSINOPHILS 0 % (0-7); HEMATOCRIT 35.6 % (42.0-54.0); HEMOGLOBIN 12.7 g/dL (13.5-17.5); IMMATURE GRANULOCYTES 0.2 % (0-5); LYMPHOCYTES 17.7 % (15-50); MCH 32.5 pg (26.0-34.0); MCHC 35.7 g/dL (31.0-37.0); MEAN PLATELET VOLUME 10.5 fL (7.4-10.4); MONOCYTES 8.9 % (2-11); NEUTROPHILS 73.2 % (40-80); PLATELET COUNT 175 10x3/uL (130-400); RBC 3.91 10x6/uL (4.20-6.10); RDW 14.6 % (11.5-14.5)
[2019-05-09 06:17] VITALS: BP 145/89
[2019-05-09 06:27] LABS: ALBUMIN 3.3 g/dL (3.4-5.0); ALKALINE PHOSPHATASE 76 U/L (46-116); ALT (SGPT) 36 U/L (10-68); AMYLASE - SERUM 37 U/L (25-115); BILIRUBIN - DIRECT 0.24 mg/dL (0.00-0.30); BILIRUBIN - INDIRECT 0.53 mg/dL (0.00-1.00); BILIRUBIN - TOTAL 0.77 mg/dL (0.2-1.3); CHLORIDE - SERUM 104 mmol/L (98-107); POTASSIUM - SERUM 3.3 mmol/L (3.5-5.1); PROTEIN - SERUM 6.8 g/dL (6.4-8.2); SODIUM 139 mmol/L (136-145); eGFR NON AFRICAN AMERICAN 82 mL/min (90-120)
[2019-05-09 06:28] LABS: CALC OSMOLALITY 274 mosm/kg (275-300); CARBON DIOXIDE 26.3 mmol/L (21.0-32.0); GLUCOSE 90 mg/dL (74-106); LIPASE 47 U/L (73-393); UREA NITROGEN 4 mg/dL (7-18)
[2019-05-09 06:34] LABS: WBC 9.3 10x3/uL (4.8-10.8)
--- NOTE | 2019-05-09 07:21 | NUR ---
PT RESTING, EYES CLOSED. RR EVEN AND UNLABORED. NO DISTRESSED NOTED. WILL CONTINUE TO MONITOR.
[2019-05-09 08:44] VITALS: BP 162/101
--- NOTE | 2019-05-09 09:44 | NUR ---
PT STATED HE FELT FSBS WAS LOW. WHEN CHECKED FSBS 70
--- NOTE | 2019-05-09 10:29 | NUR ---
Nutrition Follow-Up: Pt wanting to try solid foods. Diet advanced to diabetic for lunch per MD. Pt c/o nausea. Reports clear liquid BM yesterday. Diet: Diabetic BM: 05/08 (per pt) Wt: 188# Labs noted: Glu 90, K+ 3.3, Alb 3.3 Meds noted: Lantus, Humalog, KCl Will monitor PO intake/tolerance. RD following.
[2019-05-09 11:01] VITALS: BP 149/93
--- NOTE | 2019-05-09 18:09 | NUR ---
PT D/C PER PERSONAL VEHICHLE VIA WHEELCHAIR. ALL BELONGINGS SENT WITH PT.
--- NOTE | 2019-05-09 18:25 | NUR ---
I have reviewed this patient and I concur with the Shift Assessment completed by the Licensed Practical Nurse today this shift.
[2019-05-09 20:00] VITALS: BP 168/97
--- NOTE | 2019-05-09 20:00 | NUR ---
ROUNDS COMPLETED. VSS, SBP 160'S. AAOX4, FAMILY @BEDSIDE. R.HAND IV INFILTRATED @SHIFT CHANGE. REMOVE IV, TIP INTACT, CLEAN SITE, APPLIED 2X2 GAUZE AND TAPED. RESITED A NEW PIV 20G IN LFA X1 STICT. PT TOLERATES WELL. RESTARTED PT'S IV PROTONIX. PT VOICED THANKS. DENIES ANY FURTHER NEEDS AT THIS TIME. WILL CPOC.
--- NOTE | 2019-05-09 21:15 | NUR ---
PT C/O OF LOWER BACK, ADB AND HEAD PAIN. PRN NORCO-5 GIVEN AT THIS TIME. WILL CTM.
[2019-05-10] VITALS: BP 145/95
[2019-05-10 04:00] VITALS: BP 153/99
[2019-05-10 06:17] LABS: BASOPHILS 0.2 % (0-2); EOSINOPHILS 0.3 % (0-7); HEMATOCRIT 37.3 % (42.0-54.0); HEMOGLOBIN 13.3 g/dL (13.5-17.5); IMMATURE GRANULOCYTES 0.2 % (0-5); LYMPHOCYTES 29.1 % (15-50); MCH 32.4 pg (26.0-34.0); MCHC 35.7 g/dL (31.0-37.0); MEAN PLATELET VOLUME 10.4 fL (7.4-10.4); MONOCYTES 12.3 % (2-11); NEUTROPHILS 57.9 % (40-80); PLATELET COUNT 175 10x3/uL (130-400)
[2019-05-10 06:48] LABS: ALBUMIN 3.1 g/dL (3.4-5.0); ALKALINE PHOSPHATASE 76 U/L (46-116); BILIRUBIN - TOTAL 0.87 mg/dL (0.2-1.3); CALCIUM 9.1 mg/dL (8.5-10.1); CHLORIDE - SERUM 103 mmol/L (98-107); CREATININE - SERUM 0.9 mg/dL (0.6-1.3); PROTEIN - SERUM 6.8 g/dL (6.4-8.2); SODIUM 141 mmol/L (136-145); eGFR NON AFRICAN AMERICAN > 90 mL/min (90-120)
[2019-05-10 06:49] LABS: CALC OSMOLALITY 276 mosm/kg (275-300); GLUCOSE 59 mg/dL (74-106); UREA NITROGEN 6 mg/dL (7-18)
[2019-05-10 06:50] LABS: POTASSIUM - SERUM 2.8 mmol/L (3.5-5.1)
[2019-05-10 06:51] LABS: ALT (SGPT) 55 U/L (10-68)
[2019-05-10 06:52] LABS: WBC 6.2 10x3/uL (4.8-10.8)
--- NOTE | 2019-05-10 07:30 | NUR ---
A/A/OX3. RESTING IN BED WATCHING TV. C/O PAIN 7/10 HEAD AND FLANK AREAS BILATERALLY. REQUESTS PAIN MED AND GIVEN ORDERED. NO OTHER REQUESTS OR COMPLAINTS. ASKING ABOUT POSSIBLE DISCHARGE TODAY, TOLD HIM WOULD HAVE TO DISCUSS WITH WHEN SHE COMES AROUND. 3 LUMEN IV PATENT TO LEFT FOREARM WITH NO REDNESS OR EDEMA AT SITE. ASSESSEMENT COMPLETED AND WILL CONTINUE POC. BED IN LOW POSITION AND CALL LIGHT IN REACH.
[2019-05-10 07:51] VITALS: BP 156/100
--- NOTE | 2019-05-10 08:45 | NUR ---
NOTIFIED JACQUIE OF K+ LEVEL OF 2.8. ORDERS RECEIVED TO FOLLOW PROTOCOL WITH IV POTASSIUM 20 MEQ AND DONE.
--- NOTE | 2019-05-10 09:50 | NUR ---
DR. BUSH HERE AND ORDERS RECEIVED TO GIVEN 40MEQ K+ PER PROTOCOL NOW AND WHEN THIS BAG OF IV K+ IS FINISHED GET K+ LEVEL. MED GIVEN
[2019-05-10 12:31] VITALS: BP 171/96
--- NOTE | 2019-05-10 17:16 | NUR ---
DISCHARGE INSTRUCTIONS REVIEWED WITH PT AND ALL QUESTIONS ANSWERED. PIV REMOVED WITH [place] TIP INTACT. ASSISTED PT TO FRONT OF HOSPITAL VIA WHEELCHAIR, PT LEFT WITH
--- NOTE | 2019-05-10 19:53 | MORECARE ---
CASE MANAGEMENT DISCHARGE SUMMARY PATIENT: SOFIA BURNETT UNIT: [id number] ADM DATE: 05/07/19 AGE: 58 : 64 SEX: M ROOM/BED: D.1208 AUTHOR: EMMANUEL BROOKS PHYSICIAN: REFERRING PHYSICIAN: AVIVA VALENTINE MD DATE OF SERVICE: 05/10/19 Discharge Plan Patient Name: SOFIA BURNETT Facility: [facility]:[place] : 1960 Planned Disposition: Home Anticipated Discharge Date: Discharge Date: 05/10/2019 Expected LOS: Initial Reviewer: [email or web address] Initial Review Date: 05/07/2019 Generated: 05/10/19 8:52 pm Comments DCP- Discharge Planning Updated by [email or web address]: Veronika Disla on 05/10/19 6:[address] Patient Name: SOFIA BURNETT Encounter No: [id number] : 1960 Primary Insurance: [employer] Anticipated DC Date: Planned Disposition: Home External Planned Provider: : DCP follow-up note: Patient and family in agreement with discharge plan. No changes to plan. Case management will follow and assist as needed. Veronika Disla DCP- Discharge Planning Updated by [email or web address]: Veronika Disla on 05/07/19 5:[address] Patient Name: SOFIA BURNETT Admission Status: ER Accout number: [id number] Admission Date: 05-06-2019 : 1960 Admission Diagnosis: Attending: AVIVA VALENTINE Current LOS: 1 Anticipated DC Date: Planned Disposition: Home Primary Insurance: [employer] Discharge Planning Comments: CM met with patient and spouse (Lenora) at bedside after explaining CM role and obtaining verbal consent. Patient lives at home with his Lenora and plans to return there upon discharge. Patient feels this would be a safe discharge. CM discussed availability / needs of home health and medical equipment. Patient denies any discharge needs at this time. Patient states he will have his drive him home upon discharge. CM will continue to follow and assist as needed with discharge planning / needs. Manager Security: Veronika Disla DCP- Discharge Planning Updated by [email or web address]: Veronika Disla on 05/07/19 5:[address] CM [facility]TACTED [facility] AND INFORMED THEM OF PATIENTS ADMISSION. PATIENT PLACED ON LIST TO TRANSFER. DCPIA - Discharge Planning Initial Assessment Updated by [email or web address]: Veronika Disla on 05/07/19 6:13 pm * Is the patient Alert and Oriented? Yes * How many steps to enter\exit or inside your home? * [facility] * [facility] [place] - [facility] OFF[facility] * Preadmission Environment Home with Family * ADLs Independent * Other Equipment GLUCOMETER, B/P CUFF * List name and contact numbers for known caregivers / representatives who currently or will assist patient after discharge: LENORA BARAHONA - SPOUSE - [phone] * Verbal permission to speak to the caregivers and representatives has been obtained from the patient. Yes * Community resources currently utilized None * Additional services required to return to the preadmission environment? No * Can the patient safely return to the preadmission environment? Yes * Has this patient been hospitalized within the prior 30 days at any hospital? No Last DP export: 05/07/19 5:20 p Patient Name: SOFIA BURNETT Page [id number] at 1951 All edits/amendments must be made on the electronic document DICTATION DATE: 05/10/191951 NEW CAR SALES MANAGER: AMA 05/10/191951 RPT#: [id number] DC DATE:05/10/19 STATUS: DIS IN [facility] [address] [place] [address] END OF REPORT
== END 2019-05-10 17:16 | disposition home or self-care (01) | DRG 639 ==
LOC: D.ER 20:09 → OBSVTIME 22:11 → D.MS 22:11 → D.ICU 05-07 06:59 → D.M3 05-07 11:17 → D.ICU 05-07 11:17 → D.M3 05-08 14:48
PROVIDERS: Emergency Medicine; Family Medicine; ADMIT Internal Medicine Nephrology; ATTEND Internal Medicine Nephrology
DX: E11.10 Type 2 diabetes mellitus with ketoacidosis without coma (principal); Z79.4 Long term (current) use of insulin; I10 Essential (primary) hypertension; E86.0 Dehydration; E87.6 Hypokalemia